=== PATIENT | male | born 1955 | race Caucasian/White ===

== ENCOUNTER → 2018-02-28 09:13 | Outpatient (CLI) | payer OTHER, SELFPAY ==
[2018-02-28 10:23] LABS: Add Manual Diff / Slide Review NO; Hematocrit 47.5 % (41-53); Hemoglobin 16.5 g/dL (13.5-17.5); Lymphocytes Percent Auto 32.9 % (25-40); Mean Corpuscular HGB Conc 34.8 % (30-36); Mean Corpuscular Hemoglobin 31.6 PG (26-34); Mean Corpuscular Volume 90.8 fL (80-100); Monocytes Percent Auto 9.2 % (3-14); Neutrophils Absolute Auto 3800 /uL (3000-5900); Neutrophils Percent Auto 54.9 % (50-75); Platelet Count 275 X10^3/uL (150-400); Red Blood Cell Count 5.23 X10^6/uL (4.5-5.9); Red Cell Distribution Width 13.7 % (11.6-14.8); White Blood Cell Count 6.9 X10^3/uL (4.5-11.0)
[2018-02-28 10:25] LABS: Hemoglobin A1C% w Est Avg Glu 5.9 % (4.0-6.0)
[2018-02-28 11:28] LABS: Alanine Aminotransferase 51 IU/L (21-72); Albumin 4.6 g/dL (3.5-5.0); Albumin Globulin Ratio 1.5 (1.0-2.8); Alkaline Phosphatase 68 U/L (38-126); Aspartate Aminotransferase 36 IU/L (17-59); Bilirubin Total 0.6 mg/dL (0.2-1.3); Blood Urea Nitrogen 17 mg/dL (9-20); Calcium 9.2 mg/dL (8.4-10.2); Carbon Dioxide 27 mmol/L (22-32); Chloride 100 mmol/L (98-107); Cholesterol 172 mg/dL (140-199); Estimated Glomerular Filt Rate > 60.0 mL/min (>60); Glucose 118 mg/dL (80-110); HDL Cholesterol 42 mg/dL (40-60); HEMOLYSIS 15 (0-50); LDL Cholesterol Calculated 83 mg/dL (<100); Potassium 4.2 mmol/L (3.4-5.1); Sodium 140 mmol/L (137-145); Total Protein 7.6 g/dL (6.3-8.2); Triglycerides 234 mg/dL (35-150)
== END ==
PROVIDERS: PCP Internal Medicine; Visit Provider Naturopath
DX: Z00.00 Encounter for general adult medical examination without abnormal findings (principal); K76.0 Fatty (change of) liver, not elsewhere classified; R73.9 Hyperglycemia, unspecified
CPT/HCPCS: 36415; 80053; 80061; 83036; 85025

== ENCOUNTER 2018-04-25 08:32 | Day surgery (SDC) | payer OTHER, SELFPAY ==
[2018-04-02 08:39] VITALS: BMI 32.3
[2018-04-25] VITALS (9 sets, daily range): BP systolic 113–151; BP diastolic 76–100; PULSE 6–80; RESP 8–16; TEMP 36.3–37.1; O2SAT 94–97; BMI 32.3
[2018-04-25] MEDS: LACTATED RINGERS 1,000 ML 100 ML IV ×2 (09:18→11:16)
--- NOTE | 2018-04-25 10:24 | PM.PREOP ---
Pre-operative Note Interval Note Pre-op Check: Yes History & Physical Reviewed by Physician Changes: No
[2018-04-25] MEDS: CEFAZOLIN 2 GM/100 ML FROZ.PIGGY IV (10:27)
--- NOTE | 2018-04-25 10:47 | SUR.OPER ---
Supine on padded OR bed, head on pillow, arms secured on padded arm boards at <90 degrees abduction, legs uncrossed, safety belt at thigh, tape over blanket over lower legs.
[2018-04-25] MEDS: BUPIVACAINE 0.5% (PF) VIAL 30 ML INJ (10:53)
[2018-04-25] MEDS: LIDOCAINE 1% W/EPI INJ 20 ML INJ (10:54)
[2018-04-25] MEDS: CEFAZOLIN 1 GM VIAL IV (11:01)
--- NOTE | 2018-04-25 11:24 | PM.OP.1 ---
Operative Date/Time/Diagnoses Date of procedure: 04/25/18 Time of procedure: 11:24 Pre-op diagnosis: Large umbilical hernia Post-op diagnosis: same Procedure & Clinicians Procedure: Umbilical hernia repair Same procedure as scheduled: Yes Indications: Large umbilical hernia Surgeon: Christina Ray Click Yes if Unassisted: Yes Anesthesia Type: General (Kotlarczyk) Operative Notes Findings: 4 x 4 cm defect at the site of the umbilicus. Closure Type: primary Specimen(s): none sent Implants & Drains: 6.4 x 6.4 cm C cur mesh implant Estimated Blood Loss (mL): 5 Blood products transfused: none Procedure in detail: After obtaining informed consent, the patient brought to the operating room and placed in the supine position on the operating table. Following successful induction of general endotracheal anesthesia, appropriate padding of all bony prominences, and placement of appropriate monitors, the abdomen is prepped and draped in a standard surgical fashion. A time-out was held per SCOAP protocol. Following infiltration with local anesthetic to create a field block, an incision was created directly over the umbilical defect. This is directly through the center of the umbilicus vertically. The skin flaps were retracted laterally and the hernia sac carefully dissected free from the overlying dermis. The circumferential size of the hernia was 4 x 4 cm. The hernia sac itself was amputated and passed from the table. The edges of the remaining peritoneum were then closed with a running Vicryl suture. A 6.4 cm round C cur implant was chosen for repair. This was deployed into the defect in the preperitoneal space. It was flattened and sewn to the edges of the fascia with Vicryl suture. The wounds was checked for hemostasis and irrigated with warm saline solution containing Ancef. The incision was then closed in layers with reconstruction of the umbilicus using Vicryl and Monocryl suture. All sponge, needle, and instrument counts were correct at the conclusion of the case. The patient was allowed awaken without anesthesia and taken to the post anesthesia care unit in good condition. Complications: none Condition: stable Disposition: PACU Plan for aftercare: 1. Discharge to home 2. Follow up with me in 2 weeks
--- NOTE | 2018-04-25 11:39 | SUR.PHASEI ---
arrived airway in, not reponding, now awake airway out and patent. 02 weaning off.
[2018-04-25] MEDS: OXYCODONE/ACETAMINOPHEN 5/325 TABLET 1 TAB PO ×2 (11:52→12:15)
--- NOTE | 2018-04-25 11:57 | SUR.PHASEI ---
stable pacu stay, abomenal incision remained c/d/i, medicated with percocet after applesauce tolerated.
--- NOTE | 2018-04-25 12:13 | SUR.PHASEII ---
ride called awaiting fruit picker. medicated with 2nd percocet tab for 4/10 pain.
--- NOTE | 2018-04-25 12:24 | SUR.PHASEII ---
report to emmett starr rn. assessment unchanged call [facility] in reach. bed down and locked.
== END 2018-04-25 12:42 | disposition home or self-care (01) ==
PROVIDERS: Family Provider Psychiatry & Neurology Psychiatry; PCP Internal Medicine; Visit Provider Surgery
PROC: (CPT 49585; principal; 2018-04-25 10:45)
DX: K42.9 Umbilical hernia without obstruction or gangrene (principal); E66.9 Obesity, unspecified
CPT/HCPCS: 49585; C1781; J0690; J1100; J2250; J2405; J2704; J3010

== ENCOUNTER 2018-05-03 16:16 | Emergency (ER) | payer OTHER, SELFPAY ==
[2018-05-03 16:20] VITALS: BP 141/86; PULSE 57; RESP 16; TEMP 36.2; O2SAT 96
--- NOTE | 2018-05-03 18:09 | ED_ITS ---
HPI - Skin/Abscess/Foreign Bdy <HANNAH Mar - Last Filed: 05/03/18 21:48> General Chief complaint: Skin/Abscess/Foreign Body Stated complaint: POST OP LEAKAGE Time Seen by Provider: 05/03/18 17:27 Source: patient Mode of arrival: ambulatory Limitations: no limitations History of Present Illness HPI narrative: Patient is a 62-year-old male with history of umbilical hernia repair who presents with leaking from his incision. He states he had surgery on 04/25. He denies any belly pain, nausea, vomiting, diarrhea, fevers, chills or redness at the site. He states the drainage was watery, and he would not have noticed if he did not look down at his shirt. He denies any pus discharge. He has scheduled follow-up with his surgeon in a few days. He has not contacted his surgeon. Related Data Home Medications Medication Instructions Recorded Confirmed lamotrigine 200 mg tablet 200 mg PO DAILY 03/29/18 05/03/18 Previous Rx's Medication Instructions Recorded oxycodone 5 mg PO Q4-6H PRN #30 tab 04/25/18 Allergies Allergy/AdvReac Type Severity Reaction Status Date / Time No Known Drug Allergies Allergy Verified 05/04/18 10:29 Review of Systems <ADILENE Mar - Last Filed: 05/03/18 21:48> Review of Systems GENERAL: Denies chills, fatigue, malaise, fever, sweats. HEENT: Denies sinus pain, ear pain, sore throat, difficulty swallowing, dizziness. RESPIRATORY: Denies dyspnea, cough, wheezing, hemoptysis, sputum. CARDIOVASCULAR: Denies chest pain, palpitations, orthopnea, edema, GASTROINTESTINAL: See HPI : Denies dysuria, frequency, incontinence, hematuria, urinary retention. MUSCULOSKELETAL: denies weakness, joint pain, or bony pain SKIN: See HPI NEUROLOGIC: Denies weakness, headache, numbness, change in speech, confusion, seizures, incoordination. PSYCHIATRIC: No concerning psychosocial issues. 12 point review of systems is negative except for those stated above Exam <ADILENE Mar - Last Filed: 05/03/18 21:48> Narrative Exam Narrative: GENERAL: This is a well-nourished, well-developed patient, no acute distress HEAD: Atraumatic. Normocephalic. No temporal or scalp tenderness. EYES: Pupils equal round and reactive. Extraocular motions intact. No scleral icterus. No injection or drainage. ENT: Nose without bleeding, purulent drainage or septal hematoma. Throat without erythema, tonsillar hypertrophy or exudate. Uvula midline. Airway patent. NECK: Trachea midline. No JVD or lymphadenopathy. Supple, nontender, no meningeal signs. CARDIOVASCULAR: Regular rate and rhythm without murmurs, gallops, or rubs. RESPIRATORY: Clear to auscultation. Breath sounds equal bilaterally. No wheezes , rales, or rhonchi. GASTROINTESTINAL: Abdomen soft, non-tender, nondistended. No hepato-splenomegaly , or palpable masses. No guarding. No pain to palpation all 4 quadrants. Active bowel sounds all 4 quadrants. EXTREMITIES: No clubbing, cyanosis, or edema. No joint tenderness, effusion, or edema noted. BACK: Nontender without deformity or crepitance. No flank tenderness. NEURO: AOx3. SKIN: Laceration noted umbilicus. No surrounding erythema, no pus, no swelling noted. Slight watery drainage noted. Initial Vital Signs Initial Vital Signs: Vital Signs Temperature 97.2 F L 05/03/18 16:20 Pulse Rate 57 L 05/03/18 16:20 Respiratory Rate 16 05/03/18 16:20 Blood Pressure 141/86 H 05/03/18 16:20 Pulse Oximetry 96 05/03/18 16:20 <Ryan Baez DO - Last Filed: 05/07/18 07:15> Initial Vital Signs Initial Vital Signs: Vital Signs Temperature 97.2 F L 05/03/18 16:20 Pulse Rate 57 L 05/03/18 16:20 Respiratory Rate 16 05/03/18 16:20 Blood Pressure 141/86 H 05/03/18 16:20 Pulse Oximetry 96 05/03/18 16:20 Course <HANNAH Mar - Last Filed: 05/03/18 21:48> Orders Ordered: ED Orders 05/03/18 18:30 Wound Culture and Gram Stain Stat Vital Signs - 8 hr 05/03/18 16:20 05/03/18 18:12 Temperature 97.2 F L Pulse Rate 57 L 61 Respiratory Rate 16 16 Blood Pressure 141/86 H Blood Pressure [Left Arm] 129/81 Pulse Oximetry 96 94 <Ryan Baez DO - Last Filed: 05/07/18 07:15> Orders Ordered: ED Orders 05/03/18 18:30 Wound Culture and Gram Stain Stat Vital Signs - 8 hr 05/03/18 16:20 05/03/18 18:12 Temperature 97.2 F L Pulse Rate 57 L 61 Respiratory Rate 16 16 Blood Pressure 141/86 H Blood Pressure [Left Arm] 129/81 Pulse Oximetry 96 94 MDM - Skin/Abscess/Foreign Bdy <CHAZ Mar-BC - Last Filed: 05/03/18 21:48> MDM Narrative Medical decision making narrative: Patient presented with chief complaint of leakage from his surgical incision. He has no signs or symptoms of infection, appears nontoxic and is hemodynamically stable. I offered to do blood work and further workup to evaluate for infection, but patient declined at this point time. We did obtain a wound culture in order to evaluate for infection. I discussed at length return precautions as well as follow up with his primary care provider patient did not want further workup today. Discussed at length monitoring for signs and symptoms of infection including redness, pus, abdominal pain. No questions or concerns upon discharge. Discharge Plan Departure Patient Disposition: Home Clinical Impression: Encounter for postoperative wound check Discharge Date/Time: 05/03/18 18:19 Interventions: ED Discharge Assessment Last Done: 05/03/18 18:18 Activity Restrictions/Additional Instructions: Please monitor your wound for signs and symptoms of infection including redness , pus, fever. Please re-evaluated if any of these occur. Please monitor for belly pain and be evaluated if that occurs as well. Please follow-up with her surgeon as scheduled and come back to the emergency department if needed. We are sending off a wound culture to make sure that there is no infection in the drainage. I do not see any signs or symptoms of infection today. Prescriptions: No Action lamotrigine 200 mg tablet 200 mg PO DAILY RF: 0 oxycodone 5 mg tablet 5 mg PO Q4-6H PRN (Reason: pain) Qty: 30 RF: 0 Referrals: Edison Aguayo MD [Primary Care Provider] - <Ryan Baez DO - Last Filed: 05/07/18 07:15> Cosign ED Attending Cosignature Attestation: I was available for consultation during this patient's emergency department encounter
--- NOTE | 2018-05-03 18:09 | PC.NURSE ---
s/p 8 days umbilical hernia, noted today, umbilical surgical site , draining, denies fever,pain, vomiting, wound culture obtained, cleaned with water/hibiclens, under preassure, tolerated well, , no active bleeding noted, abdominal soft and non tender. umbilical site, no redness, no tenderness with palpitation. dry dressing applied. tolerated well.
[2018-05-03 18:12] VITALS: BP 129/81; PULSE 61; RESP 16; O2SAT 94
== END 2018-05-03 18:19 | disposition home or self-care (01) ==
PROVIDERS: Emergency Provider Nurse Practitioner Family; Family Provider Psychiatry & Neurology Psychiatry; PCP Internal Medicine
DX: Z48.89 Encounter for other specified surgical aftercare (principal)
CPT/HCPCS: 87070; 87075; 87077; 87147; 87186; 87205; 99282; 99283

== ENCOUNTER 2018-05-16 12:52 | Day surgery (SDC) | payer OTHER, SELFPAY ==
[2018-05-11 16:26] VITALS: BMI 32.3
[2018-05-16 13:39] VITALS: BP 119/73; PULSE 63; RESP 16; TEMP 36.3; O2SAT 96; BMI 32.3
[2018-05-16] MEDS: LACTATED RINGERS 1,000 ML 42 ML IV ×2 (13:51→16:25)
[2018-05-16] MEDS: CEFAZOLIN 2 GM/100 ML FROZ.PIGGY IV (15:06)
--- NOTE | 2018-05-16 15:06 | PM.PREOP ---
Pre-operative Note Interval Note Pre-op Check: Yes History & Physical Reviewed by Physician Changes: No
--- NOTE | 2018-05-16 15:27 | SUR.OPER ---
Supine on padded OR bed, head on pillow, arms secured on padded arm boards at <90 degrees abduction, legs uncrossed, safety belt at thigh, tape over blanket over lower legs.
[2018-05-16] MEDS: BUPIVACAINE 0.5% (PF) VIAL 30 ML INJ ×2 (15:33→15:34)
[2018-05-16] MEDS: LIDOCAINE 1% W/EPI INJ 20 ML INJ (15:35)
--- NOTE | 2018-05-16 15:58 | PM.OP.1 ---
Operative Date/Time/Diagnoses Date of procedure: 05/16/18 Time of procedure: 15:58 Procedure & Clinicians Procedure: Removal of C cur mesh and direct repair of umbilical hernia Same procedure as scheduled: Yes Indications: Postop mesh infection Surgeon: Christina Ray Click Yes if Unassisted: Yes Anesthesia Type: General (Dr. Domingo) Operative Notes Findings: 1. No rosanne pus 2. Mesh beginning to incorporate. 3. Obliteration of the previously identified hernia sac and seroma cavity Closure Type: primary Specimen(s): other (Hernia mesh for identification only) Estimated Blood Loss (mL): 5 Procedure in detail: After obtaining informed consent, the patient brought to the operating room and placed in the supine position on the operating table. Following successful induction of general endotracheal anesthesia, appropriate padding of all bony prominences, placement of appropriate monitors, the abdomen is prepped and draped in the standard surgical fashion. A time-out was held per SCOAP protocol. Following infiltration of local anesthetic to create a field block, the existing incision in through the umbilicus was reopened and carried down through the skin and subcutaneous tissue. We immediately encountered mesh with thin serous fluid overlying it. The Prolene sutures that were holding it to the fascia were clipped and the mesh removed. The wound was carefully irrigated with saline solution containing Betadine and aspirated free of all fluid. The omentum was noted to be densely adherent to the posterior abdominal wall without any intrusion of bowel. We then began direct repair of the resultant fascial defect. The edges of the fascia were closed primarily with #1 PDS suture in an interrupted fashion. The subcutaneous tissues were carefully irrigated again with Betadine and saline solution. A single Vicryl suture was placed to approximate the deep subcutaneous tissues. The skin was closed with interrupted nylon suture and allowed to drain. All sponge, needle, and instrument counts were correct at the conclusion the case. The patient is not awake anesthesia without difficulty and taken to the postanesthesia care unit in good condition. Complications: none Condition: stable Disposition: PACU Plan for aftercare: 1. Discharge to home 2. Follow up with me in my office in 2 weeks
[2018-05-16 16:00] VITALS: BP 131/77; PULSE 72; RESP 16; TEMP 36.6; O2SAT 95
[2018-05-16 16:05] VITALS: BP 137/78; PULSE 67; RESP 13; O2SAT 96
[2018-05-16 16:10] VITALS: BP 127/66; PULSE 69; RESP 12; TEMP 36.3; O2SAT 95
[2018-05-16 17:00] VITALS: BP 132/76; PULSE 68; RESP 16; TEMP 36.1; O2SAT 96
== END 2018-05-16 17:15 | disposition home or self-care (01) ==
PROVIDERS: Family Provider Psychiatry & Neurology Psychiatry; PCP Internal Medicine; Visit Provider Surgery
PROC: (CPT 49585; principal; 2018-05-16 14:30)
DX: T85.79XA Infection and inflammatory reaction due to other internal prosthetic devices, implants and grafts, initial encounter (principal); K42.9 Umbilical hernia without obstruction or gangrene
CPT/HCPCS: 49585; J0690; J1100; J2704

== ENCOUNTER → 2020-05-20 07:28 | Outpatient (CLI) | payer OTHER, SELFPAY ==
[2020-05-20 08:24] LABS: Hemoglobin A1C% w Est Avg Glu 6.1 % (4.0-6.0)
[2020-05-20 08:26] LABS: Add Manual Diff / Slide Review NO; Basophils Absolute Auto 100 /uL (0-100); Basophils Percent Auto 1.2 % (0-2); Eosinophils Absolute Auto 100 /uL (0-450); Eosinophils Percent Auto 1.4 % (2-4); Hematocrit 49.2 % (41-53); Hemoglobin 16.7 g/dL (13.5-17.5); Lymphocytes Absolute Auto 2000 /uL (1100-4500); Lymphocytes Percent Auto 32.4 % (25-40); Mean Corpuscular Hemoglobin 31.2 PG (26-34); Mean Corpuscular Volume 91.8 fL (80-100); Monocytes Absolute Auto 700 /uL (0-900); Monocytes Percent Auto 10.5 % (3-14); Neutrophils Absolute Auto 3400 /uL (1500-7000); Neutrophils Percent Auto 54.5 % (50-75); Platelet Count 249 X10^3/uL (150-400); Red Blood Cell Count 5.36 X10^6/uL (4.5-5.9); Red Cell Distribution Width 13.7 % (11.6-14.8); White Blood Cell Count 6.3 X10^3/uL (4.5-11.0)
[2020-05-20 08:36] LABS: Alanine Aminotransferase 34 IU/L (<50); Albumin 4.5 g/dL (3.5-5.0); Albumin Globulin Ratio 1.4 (1.0-2.8); Alkaline Phosphatase 69 U/L (38-126); Aspartate Aminotransferase 29 IU/L (17-59); BUN Creatinine Ratio 24.2 (6-22); Bilirubin Total 0.7 mg/dL (0.2-1.3); Blood Urea Nitrogen 22 mg/dL (9-20); Calcium 9.3 mg/dL (8.4-10.2); Carbon Dioxide 28 mmol/L (22-32); Chloride 104 mmol/L (98-107); Cholesterol 191 mg/dL (140-199); Estimated Glomerular Filt Rate > 60.0 mL/min (>60); Globulin 3.2 g/dL (1.7-4.1); Glucose 121 mg/dL (80-110); HDL Cholesterol 39 mg/dL (40-60); HEMOLYSIS < 15 (0-50); LDL Cholesterol Calculated 113 mg/dL (<100); Potassium 4.3 mmol/L (3.4-5.1); Sodium 137 mmol/L (137-145); Total Protein 7.7 g/dL (6.3-8.2); Triglycerides 196 mg/dL (35-150)
[2020-05-21 06:36] LABS: PSA Free % 18.9 % (.); PSA, Total 0.9 ng/mL (0.0-4.0)
== END ==
PROVIDERS: Family Provider Psychiatry & Neurology Psychiatry; PCP Internal Medicine; Referring Provider Naturopath; Visit Provider Naturopath
DX: Z00.00 Encounter for general adult medical examination without abnormal findings (principal); E88.81 Metabolic syndrome and other insulin resistance; Z80.42 Family history of malignant neoplasm of prostate
CPT/HCPCS: 36415; 80053; 80061; 83036; 84153; 84154; 85025

== ENCOUNTER → 2020-06-11 15:52 | Outpatient (CLI) | payer OTHER, SELFPAY ==
--- NOTE | 2020-06-11 15:53 | DIET.PN ---
Dietary Progress Note Assessment: 64y M referred to nutrition for elevated A1c (6.1) and FBG (121) by Dr. 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 Usual Day: wakes 2-4am then falls asleep, doesn't feel very well rested usually up and out of bed by 5:00am within 1h 1-2c coffee 7am: water based [employer] green in 1c water c 3tbs hemp hearts, 1 c fruit (organic blueberries, or mixed berries) goes to work, drinking water finishes zoom at 12:15pm Lunch: leftovers- tofu c grilled squash, cheese- or half hb egg c cheese and coleslaw, water teaches office hours and grading/planning does some in office and some at home, when at home, can go on walks Dinner 6pm: loves ethnic foods ([place]ian-daals, saag Faroese- tends to skip the rice now), green or caesar salads gets 6-7hrs sleep per night, wears CPAP at night, would like 8h if possible HT: 6' WT: 250# (large body frame) UBW: 185-190# BMI: 33.9 Labs: FBG 121 H, A1c 6.1 H, TG 196 H, LDL 113 H, HDL 39 L Nutrition Diagnosis: altered nutrition related laboratory values r/t endocrine dysfunction, physical inactivity and nutrition related knowledge deficit aeb FBG 121 H, A1c 6.1 H, TG 196 H, LDL 113 H, HDL 39 L, BMI 33.9, pt not getting 150min physical activity per week, pt reports not knowing carb count of usual meals. Interventions: 1. Discussed abnormal laboratory values, what they mean and ways to regulate. 2. Reiterated Plate Balance for portion control, set level of carb then equal that volume in protein and double of vegetables with up to two servings fruit per day. 3. Introduced pt to Hunger Scale, aim to eat at 3 and stop at 8. 4. Educated pt on CHO counting limiting intake to 45g/meal and checking BG 2h after start of the meal c BG goal <150. If BG >150, adjust meal composition. Log PPBG to share c RD at f/u and for personal learning about how pts body tolerates a variety of carbs and mixed meals. 5. Recc pt check FBG daily c log c goal 80-130 but ideally 80-120. 5. Stressed importance of 150min of Physical Activity to reduce insulin resistance and more than that to promote weight loss and reduce NAFLD. 6. Recc pt try fasting mimicking diet plan again and aim for 5 consecutive days per month until reaching weight goal and normalized labs, then 5 consecutive days twice per year. EER: 45g CHO per meal Monitoring/Evaluations: f/u in 1mo to assess progress, check BGs and problem solve barriers.
== END ==
PROVIDERS: Family Provider Psychiatry & Neurology Psychiatry; PCP Internal Medicine; Referring Provider Naturopath; Visit Provider Naturopath
DX: R73.09 Other abnormal glucose (principal); K76.0 Fatty (change of) liver, not elsewhere classified; E66.9 Obesity, unspecified; R20.2 Paresthesia of skin; Z68.33 Body mass index [BMI] 33.0-33.9, adult; Z71.3 Dietary counseling and surveillance
CPT/HCPCS: 97802

== ENCOUNTER → 2020-07-14 16:15 | Outpatient (CLI) | payer OTHER, SELFPAY ==
--- NOTE | 2020-07-14 16:56 | DIET.PN ---
Dietary Progress Note Telehealth f/u on 64y M c preDM. Pt has not yet ordered his glucometer as he would prefer CGM vs standard [id number] test. Pt has been sticking to 45g CHO or less per meal and feels he will be able to keep this up. Pt is on d2 of FMD diet which he and his are trying for 5 consecutive days, once per month, to help with weight control and metabolic health. Pt reports his clothes are fitting looser. We were unable to get into details about BG as pt has not started testing yet. HT: 6' WT: 250# (large body frame) UBW: 185-190# BMI: 33.9 Labs: FBG 121 H, A1c 6.1 H, TG 196 H, LDL 113 H, HDL 39 L Nutrition Diagnosis: altered nutrition related laboratory values r/t endocrine dysfunction, physical inactivity and nutrition related knowledge deficit aeb FBG 121 H, A1c 6.1 H, TG 196 H, LDL 113 H, HDL 39 L, BMI 33.9, pt not getting 150min physical activity per week, pt reports not knowing carb count of usual meals. EER: 45g CHO per meal Monitoring/Evaluations: pt will schedule f/u once he has glucometer data to share or if he runs into problems with the machine itself.
== END ==
PROVIDERS: Family Provider Psychiatry & Neurology Psychiatry; PCP Internal Medicine; Referring Provider Naturopath; Visit Provider Naturopath
DX: R73.03 Prediabetes (principal); E66.9 Obesity, unspecified; Z68.33 Body mass index [BMI] 33.0-33.9, adult; Z71.3 Dietary counseling and surveillance
CPT/HCPCS: 97803

== ENCOUNTER → 2020-10-30 07:22 | Outpatient (CLI) | payer OTHER, SELFPAY ==
[2020-10-30 08:19] LABS: Hemoglobin A1C% w Est Avg Glu 5.7 % (4.0-6.0)
[2020-10-30 08:26] LABS: Cholesterol 161 mg/dL (140-199); Glucose 111 mg/dL (80-110); HDL Cholesterol 36 mg/dL (40-60); LDL Cholesterol Calculated 99 mg/dL (<100); Triglycerides 128 mg/dL (35-150)
== END ==
PROVIDERS: Family Provider Psychiatry & Neurology Psychiatry; PCP Internal Medicine; Referring Provider Naturopath; Visit Provider Naturopath
DX: E11.9 Type 2 diabetes mellitus without complications (principal)
CPT/HCPCS: 36415; 80061; 82947; 83036

== ENCOUNTER → 2024-08-21 09:15 | Outpatient (CLI) | payer OTHER, SELFPAY ==
--- NOTE | 2024-08-21 | DI.US.S_ITS ---
PROCEDURE: US RENAL COMPLETE INDICATIONS: LEFT SIDED FLANK PAIN TECHNIQUE: Real-time scanning was performed of the kidneys and bladder, with image documentation. COMPARISON: [facility], US, ABDOMEN COMPLETE, 02/28/2017, 7:47. FINDINGS: Kidneys: Kidneys are normal in size. Right kidney measures 10.5 cm long; left kidney measures 9.9 cm long. Right renal cortical thickness is 1.3 cm; left renal cortical thickness is 1.6 cm. Renal cortical echotexture is normal. No hydronephrosis or nephrolithiasis. Hypoechoic mass involves the inferior pole of the left kidney measuring 1.3 cm. Bladder: Pre-void bladder volume is 695 mL. Post-void residual is 336 mL. Pre-void images demonstrate no intraluminal masses or stones. On pre-void images, bilateral ureteral jets are noted with color Doppler interrogation. (Of note, ureteral jets may not be detectable in up to 25% of cases due to insufficient differences in specific gravity between ureteral and bladder urine). Miscellaneous: No free pelvic fluid. Incidental finding of increased hepatic echogenicity likely related to hepatic steatosis; however other hepatocellular disease processes cannot be excluded and clinical correlation is recommended. IMPRESSION: 1. Hypoechoic mass involves the inferior pole of the left kidney measuring 1.3 cm which may represent a complex peripelvic cysts; however hypoechoic solid neoplastic process cannot be excluded. Recommend 3 month follow-up ultrasound or alternatively renal protocol CT could be performed for more definitive characterization. 2. 336 cc postvoid residual. 3. Increased hepatic echogenicity likely related to hepatic steatosis; however other hepatocellular disease processes cannot be excluded and clinical correlation is recommended. Dictated by: Dennis Kimball [facility] Interpreted: Giovanny Holman MD on 08/21/2024 at 10:40 Approved by: Giovanny Holman M.D. on 08/21/2024 at 15:32
== END ==
PROVIDERS: Family Provider Psychiatry & Neurology Psychiatry; PCP Internal Medicine; Referring Provider Nurse Practitioner Family; Visit Provider Nurse Practitioner Family
DX: R10.9 Unspecified abdominal pain (principal); N28.9 Disorder of kidney and ureter, unspecified
CPT/HCPCS: 76770